=== PATIENT | female | born 1940 | race African-American/Black ===

== ENCOUNTER → 2021-04-20 | Outpatient (CLI) | payer MEDICARE ==
--- NOTE | 2021-04-20 10:06 | RAD ---
CT HEAD/BRAIN WO History: Dementia. Comparison: None. Technique: Noncontrast CT imaging was performed of the head. Findings: No intracranial hemorrhage. No mass effect. No hydrocephalus. No evidence of acute territorial infar ction. There is mild age-related prominence of the ventricles and sulci as well as mild hypodensity t he periventricular and deep white matter consistent with chronic microvascular ischemic changes. Postsurgical changes of the lenses. Orbits are otherwise unremarkable. Imaged paranasal sinuses and m astoid air cells are clear. The scalp and calvarium are unremarkable. Impression: Age-related and chronic microvascular ischemic changes of the brain. No acute intracranial findings. ----- Exposure: One or more of the following individualized dose reduction techniques were utilized for thi s examination: 1. Automated exposure control 2. Adjustment of the mA and/or kV according to patient size 3. Use of iterative reconstruction technique. Electronically signed by: Buddy Euceda MD (04/20/2021 10:03 AM) [facility]
== END ==
LOC: CT 09:31
PROVIDERS: ATTEND Internal Medicine
DX: I67.82 Cerebral ischemia (principal); F03.90 Unspecified dementia, unspecified severity, without behavioral disturbance, psychotic disturbance, mood disturbance, and anxiety
CPT/HCPCS: 70450